=== PATIENT | male | born 1985 | race Caucasian/White ===

== ENCOUNTER 2022-09-22 10:03 | Inpatient (IN) ==
[2022-09-22] MEDS ORDERED: HYDROmorphone INJ 1 MG/ML SYRINGE IV STA (11:24)
--- NOTE | 2022-09-22 11:42 | Emergency Department Note ---
History of Present Illness General Chief complaint: Pain (Generalized) Stated complaint: PAIN ALL OVER, HARD TIME USING RESTROOM Time Seen by Provider: 09/22/22 11:10 Source: patient, RN notes reviewed, old records reviewed and other (I talked to Dr. Ortez his spine surgeon) Mode of arrival: ambulatory Limitations: no limitations History of Present Illness Maximum Pain Intensity: 10 This patient comes in with ongoing right-sided neck pain that radiates down his arm his right arm feels tingly at times and when the pain gets very severe he feels tingling in his whole body like he might pass out no chest pain or shortness of breath no fever he says it is hard to urinate at times but that is been going on chronically. He did have some incontinence a week or so ago but has since had an MRI which showed a large disc without any central protrusion. I actually saw him a couple days ago and had him see Dr. Ortez. Dr. Ortez was put him in a collar and told him that if the pain is getting worse he will oper ate on him sooner than later so he returns to the ER. Home Medications Medication Instructions Recorded Confirmed Type dextroamphetamine-amphetamine 20 20 mg PO QPM PRN NEEDED 09/17/22 09/17/22 History mg tablet (Adderall) dextroamphetamine-amphetamine 30 30 mg PO QAM PRN NEEDED 09/17/22 09/17/22 History mg tablet (Adderall) lidocaine 5 % topical patch 1 patch topical DAILY PRN pain #15 09/17/22 Rx ea methylprednisolone 4 mg tablets in See Rx Instructions .Route 09/17/22 Rx a dose pack .COMPLEX #21 ea oxycodone-acetaminophen 10 mg-325 1 tab PO BID PRN Pain 09/17/22 09/17/22 History mg tablet quetiapine 50 mg tablet (Seroquel) 0 mg PO DAILY 09/17/22 09/17/22 History Allergies Allergy/AdvReac Type Severity Reaction Status Date / Time strawberry Allergy Intermediate RASH/HIVES Verified 09/17/22 15:19 codeine AdvReac Severe ACTS LIKE Verified 09/17/22 15:19 A SMALL CHILD-MENTAL AGE. escitalopram [From Lexapro] AdvReac Severe BECAME Verified 09/17/22 15:19 MANIC--DRS STATED "TO STAY AWAY FROM ANTIDEPRESSANTS" gabapentin AdvReac Severe ACTS LIKE Verified 09/17/22 15:19 A SMALL CHILD-MENTAL AGE. mirtazapine AdvReac Severe GAINED 30 Verified 09/17/22 15:19 LBS, IN 30 DAYS. Past Med/Surg History Medical History Cervical spine fracture Surgical History History of fusion of cervical spine Social History Smoking Status: Never smoker Second Hand Exposure: No; Do You Dip or Chew Tobacco: Yes; Tobacco Cessation Education Requested by Patient: No Hx Alcohol Use: Yes Alcohol type: wine Hx Substance Use: No Preferred Language: Nigerian Communication Ability: Effective Fur Puller Required: No Beliefs That Will Affect Care: None Current Living Situation: Parent Current Living Situation Comment: Staying with parents temporarily since August Other Information That Helps Us Care for You: No Feels Safe at Home: Yes Safety Concerns: Feels Safe At This Time Assistive Devices: None Review of Systems A total of 10 systems reviewed and were otherwise negative Physical Exam Vital Signs Vital Signs - 24 hr 09/22/22 10:20 09/22/22 11:28 Temperature 36.9 C Temperature Source Temporal Artery Scan Pulse Rate 66 55 L Pulse Rhythm Regular Respiratory Rate 20 18 Respiratory Effort / Characteristics Non-Labored Respiratory Depth Normal Blood Pressure 156/101 H Blood Pressure Mean 119 Pulse Oximetry 100 99 Oxygen Delivery Method Room Air Room Air Sepsis Recent Fever Within 48 Hours No Sepsis New/Unexplained Change in Mental Status N/A Sepsis Action Taken by Nursing No Action Required General: Well developed well nourished young male who is wearing a cervical collar but in no acute distress, breathing comfortably on room air. Normal speech HEENT: Normal cephalic atraumatic. Pupils are equal round and reactive to light. Extraocular movements are intact. Oropharynx is pink with moist mucous membranes. No swelling of the mouth lips or tongue. Neck: Supple with a midline trachea. No meningeal signs or stiffness, no JVD or bruits. No Stridor. Chest: Clear to auscultation bilaterally. No wheezes or rhonchi. No increased work of breathing. Heart: Regular rate and rhythm without murmurs or gallops. Abdomen: Soft nontender, nondistended without rebound guarding or rigidity. Extremities: No cyanosis clubbing or edema. No calf tenderness or assymetry Spine/Back. Non tender to palpation. No CVA tenderness Skin: Good turgor without rashes. Neurologic exam: Cranial nerves two through 12 are intact. Motor and sensation are intact and symmetrical throughout. Questionable mild weakness in the right hand Course Administered Medications Hydromorphone HCl (Hydromorphone Inj 1 Mg/Ml Syringe) 1 mg IV Q3H PRN PRN Reason: severe pain (scale 7-10) Stop: 10/06/22 13:37 Last Admin: 09/22/22 14:07 Dose: 1 mg Documented By: [facility] Lactated Ringer's (Lr) 1,000 mls @ 75 mls/hr IV .[id number] MINERVA Stop: 10/22/22 13:44 Last Admin: 09/22/22 14:18 Dose: 75 mls/hr Documented By: DERIK Discontinued Medications Hydromorphone HCl (Hydromorphone Inj 1 Mg/Ml Syringe) 1 mg IV NOW STA Stop: 09/22/22 11:25 Last Admin: 09/22/22 12:04 Dose: 1 mg Documented By: BEATRIZ Medical Decision Making Differential Diagnosis Intractable pain, cervical disc disease, cauda equina syndrome, infection, electrolyte or metabolic abnormality Medical Records Attestation: I reviewed the patient's medical records. Home Medications Current Medication List: was personally reviewed by me Laboratory Data Attestation: I reviewed the patient's lab results. Result diagrams: 09/22/22 11:59 09/22/22 11:59 ECG Data Attestation: I personally reviewed and interpreted this ECG as follows: Indication: + weakness Rate (beats per minute): 53 Rhythm: + sinus bradycardia ECG Intervals/blocks: + Normal QRS, + Normal QT and + Normal NC ECG [place]: + Normal ECG ST segments: + Normal ST segments ECG Findings: no PACs or no PVCs Comparison ECG Date: no prior available MDM Narrative This patient comes in as described above I know him from his previous visit last week he has a significant cervical disc disease which has a large bulging disc which will likely require surgery he was seen recently by Dr. Ortez and referred back to the ER because his pain is not adequately controlled. I called Dr. Dr. Ortez he is going to admit him for surgical repair tomorrow. His EKG is unremarkable he has no significant lecture light or metabolic abnormalities nothing to suggest acute infection. He received IV Dilaudid in the ED and is going to be admitted for inpatient surgical treatment of his cervical disc disease and pain Impression & Plan Cervical radiculopathy, Bulging of cervical intervertebral disc, Acute neck pain, Arm pain Discharge Plan Visit Data Chief Complaint: Pain (Generalized) Stated Complaint: PAIN ALL OVER, HARD TIME USING RESTROOM ED Provider: Justin Alonzo Discharge Problem: Cervical radiculopathy, Bulging of cervical intervertebral disc, Acute neck pain, Arm pain Patient Disposition: Admitted As Inpatient Discharge Instructions Interventions: ED Discharge Assessment Last Done: 09/22/22 13:05 : Arm pain Qualifiers: Laterality: left Qualified Code(s): M79.602 - Pain in left arm
[2022-09-22 12:22] LABS: Basophils # (auto) 0.04 K/uL (0-0.2); Basophils % (auto) 0.6 %; Eosinophils # (auto) 0.15 K/uL (0-0.50); Eosinophils % (auto) 2.1 %; Hematocrit (blood only) 48.4 % (40.1-51.0); Hemoglobin 15.8 g/dl (14.0-18.0); Immature Granulocytes # (auto) 0.03 K/uL (0.00-0.02); Immature Granulocytes % (auto) 0.4 %; Lymphocytes # (auto) 2.35 K/uL (1.2-3.4); Lymphocytes % (auto) 33.1 %; Mean Corpuscular Hemoglobin 27.6 pg (25.0-34.0); Mean Corpuscular Hgb Conc 32.6 g/dL (32.0-36.0); Mean Corpuscular Volume 84.6 fL (80.0-100.0); Mean Platelet Volume 12.5 fL (9.4-12.4); Monocytes # (auto) 0.69 K/uL (0.24-0.82); Monocytes % (auto) 9.7 %; Neutrophils # (auto) 3.83 K/uL (1.4-6.5); Neutrophils % (auto) 54.1 %; Platelet Count 218 K/uL (130-400); RDW Coefficient of Variation 14.2 % (11.5-14.5); RDW Standard Deviation 43.5 fL (36.4-46.3); Red Blood Count 5.72 M/uL (4.63-6.08); White Blood Count 7.09 K/ul (4.8-10.8)
[2022-09-22 12:28] LABS: Appearance Urine Clear (Clear); Bilirubin Urine Negative (Negative); Blood Urine Negative (Negative); Color Urine Yellow; Glucose Urine UA Negative (Negative); Ketones Urine Trace (Negative); Leukocyte Esterase Urine Negative (Negative); Nitrite Urine Negative (Negative); Protein Urine Negative (Negative); Specific Gravity Urine 1.016 (1.000-1.030); Urobilinogen Urine Negative (Negative); pH Urine 7.5 (4.5-7.5)
[2022-09-22 12:46] LABS: Albumin Globulin Ratio 1.5 (0.9-2); Albumin Level 4.6 gm/dl (3.4-5.0); BUN Creatinine Ratio 16.7 (10-20); Bilirubin,Total 1.3 mg/dl (0.2-1.0); Calcium 9.9 mg/dl (8.5-10.1); Creatinine Clr Calc Pharmacy 83.8 ml/min; Est GFR (African American) 95.4 ml/min; Est GFR (Non-African American) 82.3 ml/min; Potassium 3.7 mmol/L (3.5-5.1); Total Protein 7.6 gm/dl (6.0-8.3)
[2022-09-22] MEDS ORDERED: ACETAMINOPHEN 1,000 MG/100 ML VIAL IV PRN (13:38)
[2022-09-22] MEDS ORDERED: ONDANSETRON INJ 2 MG/ML 2 ML VIAL IV PRN (13:38)
[2022-09-22] MEDS ORDERED: METOCLOPRAMIDE HCL INJ 5 MG/ML 2 ML VIAL IV PRN (13:38)
[2022-09-22] MEDS ORDERED: HYDROmorphone INJ 0.5 MG/0.5 ML SYR IV PRN (13:38)
[2022-09-22] MEDS ORDERED: PROMETHAZINE HCL 12.5 MG in SODIUM CHLORIDE 0.9% 50 ML IV PRN (13:38)
[2022-09-22] MEDS ORDERED: NALOXONE HCL 0.4 MG/1 ML VIAL/CARP IV PRN (13:38)
[2022-09-22] MEDS ORDERED: AMPHETAMINE ASP/SULF/DEXTRAMPH 20 MG TAB PO PRN (13:38)
[2022-09-22] MEDS ORDERED: ACETAMINOPHEN 500 MG TAB PO PRN (13:38)
[2022-09-22] MEDS ORDERED: ONDANSETRON 4 MG OD TAB PO PRN (13:38)
[2022-09-22] MEDS: HYDROmorphone INJ 1 MG/ML SYRINGE IV PRN ×3 (14:07→21:25)
[2022-09-22] MEDS: LACTATED RINGER'S 1,000 ML IV SCH (14:18)
[2022-09-22] MEDS: oxyCODONE HCL IR 5 MG TAB (IMMEDIATE RELEASE) PO PRN ×2 (16:01→20:10)
[2022-09-23] MEDS: HYDROmorphone INJ 1 MG/ML SYRINGE IV PRN ×6 (00:46→23:13)
[2022-09-23] MEDS: LACTATED RINGER'S 1,000 ML IV SCH ×2 (03:20→16:11)
[2022-09-23] MEDS: oxyCODONE HCL IR 5 MG TAB (IMMEDIATE RELEASE) PO PRN ×5 (03:20→21:07)
[2022-09-23] MEDS ORDERED: ceFAZolin 2000MG 2,000 MG/15 ML SYR IV SCH (06:00)
--- NOTE | 2022-09-23 07:09 | Anesthesiology Consultation ---
Date of Service September 23, 2022 Assessment & Plan (1) Encounter for pre-operative examination: Chart Review Chart Review: entry level programmer initiated History Surgery Operation Date: 09/23/22 07:00 Proposed Procedures p Anterior Cervical Discectomy Fusion C5-C6-C7-T1 - Aguilar Ortez DO Height/Weight Height: 5 ft 7 in Weight: 79.2 kg Allergies Allergy/AdvReac Type Severity Reaction Status Date / Time strawberry Allergy Intermediate RASH/HIVES Verified 09/17/22 15:19 codeine AdvReac Severe ACTS LIKE Verified 09/17/22 15:19 A SMALL CHILD-MENTAL AGE. escitalopram [From Lexapro] AdvReac Severe BECAME Verified 09/17/22 15:19 MANIC--DRS STATED "TO STAY AWAY FROM ANTIDEPRESSANTS" gabapentin AdvReac Severe ACTS LIKE Verified 09/17/22 15:19 A SMALL CHILD-MENTAL AGE. mirtazapine AdvReac Severe GAINED 30 Verified 09/17/22 15:19 LBS, IN 30 DAYS. Medications Home Medications Medication Instructions Recorded Confirmed Last Taken dextroamphetamine-amphetamine 20 20 mg PO QPM PRN NEEDED 09/17/22 09/17/22 Unknown mg tablet (Adderall) dextroamphetamine-amphetamine 30 30 mg PO QAM PRN NEEDED 09/17/22 09/17/22 Unknown mg tablet (Adderall) lidocaine 5 % topical patch 1 patch topical DAILY PRN pain #15 09/17/22 Unknown ea methylprednisolone 4 mg tablets in See Rx Instructions .Route 09/17/22 Unknown a dose pack .COMPLEX #21 ea oxycodone-acetaminophen 10 mg-325 1 tab PO BID PRN Pain 09/17/22 09/17/22 Unknown mg tablet quetiapine 50 mg tablet (Seroquel) 0 mg PO DAILY 09/17/22 09/17/22 Unknown Active Medications Generic Name Dose Route Start Last Admin Trade Name Freq PRN Reason Stop Dose Admin Hydromorphone HCl 1 mg 09/22/22 13:38 09/23/22 04:35 Hydromorphone Inj 1 Mg/Ml Syringe IV 10/06/22 13:37 1 mg Q3H PRN Administration severe pain (scale 7-10) Lactated Ringer's 1,000 mls @ 75 mls/hr 09/22/22 13:45 09/23/22 03:20 Lr IV 10/22/22 13:44 75 mls/hr .[id number] MINERVA Administration Acetaminophen 1,000 mg in 100 mls @ 400 mls/hr 09/22/22 13:38 09/23/22 06:38 Ofirmev IV 09/25/22 13:37 400 mls/hr Q8H PRN Administration Pain Rating 1-3 & Pre PT Oxycodone HCl 5 - 10 mg 09/22/22 13:38 09/23/22 03:20 Oxycodone Hcl Ir 5 Mg Tab (Immediate Release) PO 10/06/22 13:37 10 mg Q4H PRN Administration mod to severe pain Past Medical History Medical History Cervical spine fracture Past Surgical History Surgical History History of fusion of cervical spine Social History Smoking Status: Never smoker Do You Dip or Chew Tobacco: Yes Hx Alcohol Use: Yes Alcohol type: wine alcohol intake frequency: a few times a week Hx Substance Use: No Physical Exam Vital Signs Last Vital Signs Temp 98.1 F 09/22/22 21:39 Pulse 56 L 09/22/22 21:39 Resp 18 09/22/22 21:39 BP 145/88 H 09/22/22 21:39 Pulse Ox 98 09/22/22 21:39 O2 Del Method 09/22/22 21:39 Testing Laboratory Results 09/22/22 11:59 09/22/22 11:59 Urine Color Yellow 09/22/22 11:50 Urine Appearance Clear (Clear) 09/22/22 11:50 Urine pH 7.5 (4.5-7.5) 09/22/22 11:50 Ur Specific [place] 1.016 (1.000-1.030) 09/22/22 11:50 Urine Protein Negative (Negative) 09/22/22 11:50 Urine Glucose (UA) Negative (Negative) 09/22/22 11:50 Urine Ketones Trace (Negative) H 09/22/22 11:50 Urine Nitrite Negative (Negative) 09/22/22 11:50 Ur Leukocyte Esterase Negative (Negative) 09/22/22 11:50 Electrocardiogram Date: 09/22/22 Findings: + SB @ (53 bpm)
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
[2022-09-23] MEDS ORDERED: MIDAZOLAM HCL 1 MG/ML 2ML VIAL ONE (08:08)
[2022-09-23] MEDS ORDERED: fentaNYL citrate 100 MCG/2 ML VIAL ONE ×2 (08:08)
[2022-09-23] MEDS ORDERED: QUEtiapine FUMARATE 25 MG TABLET PO SCH (09:00)
--- NOTE | 2022-09-23 11:50 | History & Physical Bridge Note ---
Date of Service September 23, 2022 History & Physical Bridge Note I have examined the patient, reviewed the History & Physical and in the interval since the performance of the History & Physical I have noted the following changes of clinical significance: no changes noted Anterior cervical discectomy and fusion C5-C6 and C7-T1
[2022-09-23] MEDS ORDERED: ceFAZolin 330 MG/ML 1 GM VIAL ONE (12:02)
[2022-09-23] MEDS ORDERED: ePHEDrine sulfate 50 MG/ML AMP IV PRN (12:11)
[2022-09-23] MEDS ORDERED: ATROPINE SULFATE 0.1 MG/ML 10ML SYR IV PRN (12:11)
[2022-09-23] MEDS ORDERED: ONDANSETRON INJ 2 MG/ML 2 ML VIAL IV PRN ×2 (12:11→15:56)
[2022-09-23] MEDS ORDERED: HYDROmorphone INJ 2 MG/ML SYR/VIAL ONE (12:36)
[2022-09-23] MEDS ORDERED: KETAMINE 50 MG/5 ML SYRINGE ONE (12:36)
[2022-09-23] MEDS ORDERED: DEXAMETHASONE SOD INJ 4 MG/ML VIAL ONE (12:53)
[2022-09-23] MEDS ORDERED: PROPOFOL IV EMULSION 10 MG/ML 20 ML VIAL IV ONE (12:54)
[2022-09-23] MEDS ORDERED: ONDANSETRON INJ 2 MG/ML 2 ML VIAL ONE (12:54)
[2022-09-23] MEDS ORDERED: GLYCOPYRROLATE 0.2 MG/ML VIAL ONE (12:54)
[2022-09-23] MEDS ORDERED: NEOSTIGMINE METHYLSULFATE 1 MG/ML 10ML VIAL ONE (12:54)
[2022-09-23] MEDS ORDERED: LARYING-O-JET KIT (LTA) ONE (12:54)
[2022-09-23] MEDS ORDERED: LIDOCAINE 2% MPF LOCAL 5 ML VIAL INFIL ONE (12:54)
[2022-09-23] MEDS ORDERED: ROCURONIUM BROMIDE 10 MG/ML 5 ML VIAL IV ONE (12:54)
[2022-09-23] MEDS ORDERED: SUCCINYLCHOLINE CHLORIDE 20 MG/ML 10 ML VIAL IV ONE (12:54)
[2022-09-23] MEDS ORDERED: FLOSEAL HEMOSTATIC MATRIX 10ML TOP ONE (13:00)
--- NOTE | 2022-09-23 14:09 | Operative Report ---
Post Operative Report Pre & Post Diagnosis Operation Date: 09/23/22 07:00 Pre-Op Diagnosis: Cervical disc herniation with myeloradiculopathy Post-Op Diagnosis: Same I identified the patient and participated in the time-out.: Yes Procedure Operation Date: 09/23/22 07:00 Actual Procedures #1 anterior cervical discectomy with bilateral foraminotomies C5-C6 C7-T1. #2 anterior cervical arthrodesis C5-C6 C7-T1. #3 placement of Spira 8 mm interbody cage filled with I factor at C5-C6 and 10 mm cage with I factor C7-T1. #4 application of Guzman plate and screws from C5-T1. Surgeon Aguilar Ortez, DO Chemical Processing Laborer Olga Galindo Estimated Blood Loss 10 Findings Consistent with Post-Op Diagnosis Specimens None Indications This is a 36-year-old male who presents with severe myeloradiculopathy and decline in neurologic status. Subsequently he is here for emergent decompression fusion. Description of Procedure Patient was met with identified informed consent obtained. Patient was then taken to the operative suite underwent ablation placed in supine position on the Ángel table with the head Oro gang head saw operator. All bony prominences well- padded eyes inspected to ensure no external pressure placed upon them. This point the anterior cervical spine was prepped and draped in normal sterile fashion. The assistance of fluoroscopy defy the C5-C7 levels. C7-T1. Again complete discectomy performed out to the uncovertebral's bilaterally. [place] distracting pins again utilized. Removed all posterior fibers removed large disc herniation out to the right neuroforamen. . A longitudinal incision was placed along the right anterior aspect the cervical spine from C5-C7. Blunt dissection with assistance of bipolar electrocautery was then performed down to and exposing the anterior cervical spine from C5-T1. Self-retaining retractors placed. Then performed a complete discectomy of C5-6 out to the uncovertebral joints bilaterally. [place] distraction pins utilized to assist in visualization. Removed all posterior annular fibers longitudinal ligament removed all disc fragments within the canal and perform bilateral foraminotomies. Endplates were then burred to subcortical and bone and 8 mm spiral cage filled with I factor tapped in position. Then proceeded to C7-T1 performed complete discectomy to the uncovertebral's bilaterally removing posterior annulus and large disc condition on the right. Endplates burred to subcortical bleeding bone and a 10 mm spiral cage filled I factor tapped in position. Distracting apparatus was removed and a Guzman plate and screws applied with the assistance of fluoroscopy. The incision was then copiously irrigated explored to ensure no damage to surrounding structures remaining bleeding. 10 round PATEL drain inserted. The incision was then closed with 2 Vicryl in a fashion of 4 Monocryl for fascial closure. Steri-Strip sterile dressings placed. Patient waken taken to PACU in stable condition please note Olga Galindo was present at the entire procedure and spinal cord monitoring was utilized at the procedure with no changes noted. I attest to the content of the Intraoperative Record and any orders documented therein. Any exceptions are noted below.
--- NOTE | 2022-09-23 14:32 | Fluoroscopy Report ---
FL cervical 2-3V CLINICAL HISTORY: ACDF C5-T1 COMPARISON STUDY: MRI of the cervical spine September 17, 2022. FLUOROSCOPY TIME: 14 seconds. FLUOROSCOPIC IMAGES: 3 FINDINGS: Fluoroscopy was provided during C5-T1 anterior discectomy and fusion. Hardware is intact. S urgical drain is noted. Endotracheal tube is partially imaged. IMPRESSION: Fluoroscopy provided during C5-T1 anterior discectomy and fusion. ACT 112: Negative or not required by law. Electronically signed by: Fox Parmar M.D. 09/23/2022 2:31 PM
[2022-09-23] MEDS: fentaNYL citrate 100 MCG/2 ML VIAL IV PRN ×4 (14:35→14:52)
[2022-09-23] MEDS ORDERED: diphenhydrAMINE 50 MG/ML VIAL ONE (15:17)
[2022-09-23] MEDS ORDERED: diphenhydrAMINE 50 MG/ML VIAL IV STA (15:17)
--- NOTE | 2022-09-23 15:31 | Anesthesiology Progress Note ---
Date of Service September 23, 2022 Anesthesia Post Procedure Vital Signs Vital Signs: Temp Pulse Pulse Resp BP BP Pulse Ox 09/23/22 14:35 62 15 157/103 H 100 09/23/22 14:25 63 17 147/88 H 100 09/23/22 14:19 36.4 C L 61 13 140/100 100 09/23/22 11:34 36.6 C 55 L 18 137/97 99 09/23/22 07:22 36.5 C 60 18 135/95 100 09/22/22 21:39 36.7 C 56 L 18 145/88 H 98 O2 Del Method O2 Flow Rate 09/23/22 14:35 Oxymask 6 09/23/22 14:25 Oxymask 6 09/23/22 14:19 Oxymask 6 09/23/22 11:34 Room Air 09/23/22 07:22 Room Air 09/22/22 21:39 Room Air Pain Intensity Neck: Pain Intensity: 10 Right Arm: Pain Intensity: 10 Transfer of Care Handoff Completed per policy Notes Mental Status: alert / awake / arousable Patient Amnestic to Procedure: Yes Nausea / Vomiting: adequately controlled Pain: adequately controlled Airway Patency, RR, SpO2: stable & adequate BP & HR: stable & adequate Hydration State: stable & adequate Anesthetic Complications: no major complications apparent and Pt Satisfied with anesthetic care
[2022-09-23] MEDS ORDERED: traMADol HCL 50 MG TABLET PO PRN (15:56)
[2022-09-23] MEDS ORDERED: METOCLOPRAMIDE HCL INJ 5 MG/ML 2 ML VIAL IV PRN (15:56)
[2022-09-23] MEDS ORDERED: ACETAMINOPHEN 500 MG TAB PO PRN (15:56)
[2022-09-23] MEDS ORDERED: LORazepam 0.5 MG in SYRINGE 0 ML IV PRN (15:56)
[2022-09-23] MEDS ORDERED: SOD PHOSPHATE/SOD BIPHOSPHATE ENEMA 132 ML BTL PR PRN (15:56)
[2022-09-23] MEDS ORDERED: hydrOXYzine HCl 25 MG TAB PO PRN (15:56)
[2022-09-23] MEDS ORDERED: NALOXONE HCL 0.4 MG/1 ML VIAL/CARP IV PRN (15:56)
[2022-09-23] MEDS ORDERED: PROMETHAZINE HCL 12.5 MG in SODIUM CHLORIDE 0.9% 50 ML IV PRN (15:56)
[2022-09-23] MEDS ORDERED: MAGNESIUM HYDROXIDE SUSP 30 ML UDC PO PRN (15:56)
[2022-09-23] MEDS ORDERED: ACETAMINOPHEN 1,000 MG/100 ML VIAL IV PRN (15:56)
[2022-09-23] MEDS ORDERED: bisacodyL 10 MG SUPP PR PRN (15:56)
[2022-09-23] MEDS ORDERED: ALUMINUM/MAGNESIUM SUSP 30 ML UDC PO PRN (15:56)
[2022-09-23] MEDS ORDERED: RACEPINEPHRINE 2.25% NEBU SOLN 0.5 ML VIAL INH PRN (15:56)
[2022-09-23] MEDS ORDERED: FAMOTIDINE 20 MG TAB PO PRN (15:56)
[2022-09-23] MEDS ORDERED: HYDROmorphone INJ 0.5 MG/0.5 ML SYR IV PRN (15:56)
[2022-09-23] MEDS ORDERED: ONDANSETRON 4 MG OD TAB PO PRN (15:56)
[2022-09-23] MEDS ORDERED: diphenhydrAMINE Capsule 25 MG CAP PO PRN (15:56)
[2022-09-23] MEDS ORDERED: dexAMETHasone 8 MG in SYRINGE 0 ML IV PRN (15:56)
[2022-09-23] MEDS: LORazepam 0.5 MG TAB PO PRN (18:20)
[2022-09-23] MEDS: ceFAZolin 2000MG 2,000 MG/15 ML SYR IV SCH (19:33)
[2022-09-23] MEDS ORDERED: DOCUSATE SODIUM/SENNA 50/8.6MG TAB PO SCH (21:00)
--- NOTE | 2022-09-23 21:56 | Electrocardiogram Report ---
Test Reason : Blood Pressure : / mmHG Vent. Rate : 053 BPM Atrial Rate : 053 BPM P-R Int : 118 ms QRS Dur : 086 ms QT Int : 388 ms P-R-T Axes : 025 -04 010 degrees QTc Int : 364 ms Sinus bradycardia Otherwise normal ECG No previous ECGs available Confirmed by Ghulam Curz ([id number]) on 09/23/2022 9:56:05 PM Referred By: REFERRED SELF Confirmed By:Ghulam Cruz
[2022-09-24] MEDS: LACTATED RINGER'S 1,000 ML IV SCH (02:52)
[2022-09-24] MEDS: ceFAZolin 2000MG 2,000 MG/15 ML SYR IV SCH (03:12)
[2022-09-24] MEDS: HYDROmorphone INJ 1 MG/ML SYRINGE IV PRN (05:12)
[2022-09-24] MEDS ORDERED: POLYETHYLENE (MIRALAX) 17 GM PACK PO SCH (06:00)
[2022-09-24] MEDS: LORazepam 0.5 MG TAB PO PRN (08:41)
[2022-09-24] MEDS ORDERED: dexAMETHasone 6 MG in SYRINGE 0 ML IV SCH (09:00)
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
== END 2022-09-24 12:22 | disposition home or self-care (01) | DRG 30 ==
LOC: ED 10:03 → 3E 11:36